=== PATIENT | female | born 1985 | race African-American/Black ===

== ENCOUNTER 2017-01-14 09:46 | Emergency (ER) | payer SELFPAY ==
[~2017-01-14] VITALS: Ht 149.9 cm; Wt 95.3 kg
[~2017-01-14 09:46] MED LIST: ALBU2.5V14 NEB; CEFD300C PO; CETI10TA22 PO; FLUT1DIS IH; MONT10TA9 PO; TRAM-48 PO; VENTOLIN HFA18 GM INH
--- NOTE | 2017-01-14 10:10 | PHYS DOC ---
Past Medical History Past Medical History: Asthma, Other Additional Past Medical Histor: seasonal allergies, neuropathy, morbid obesity Past Surgical History: , Tonsillectomy, Tubal ligation Additional Past Surgical Histo: Umbilical HERNIA REPAIR, c sec x5 Alcohol Use: Occasionally Drug Use: None Adult General Chief Complaint Chief Complaint: KNEE INJURY [facility] HPI Patient is a 31 year old female presents to the ED complaining of left knee injury 3 days. Patient states she hit her knee on a table and has had pain with walking since. She rates pain as 7 out of 10 and describes it as sharp. Denies fever, swelling, skin changes or inability to walk. Review of Systems Review of Systems Constitutional: Denies fever or chills [] Eyes: Denies change in visual acuity, redness, or eye pain [] HENT: Denies nasal congestion or sore throat [] Respiratory: Denies cough or shortness of breath [] Cardiovascular: No additional information not addressed in HPI [] GI: Denies abdominal pain, nausea, vomiting, bloody stools or diarrhea [] : Denies dysuria or hematuria [] Musculoskeletal: Denies back pain. Complains of left knee pain.] Integument: Denies rash or skin lesions [] Neurologic: Denies headache, focal weakness or sensory changes [] Endocrine: Denies polyuria or polydipsia [] Allergies Allergies Allergies Coded Allergies Type Severity Reaction Last Updated Verified amoxicillin Allergy Intermediate Rash 08/02/14 No cephalexin Allergy Intermediate Rash 08/02/14 No doxycycline Allergy Intermediate Rash 08/02/14 No Physical Exam Physical Exam Constitutional: Well developed, well nourished, no acute distress, non-toxic appearance. [] HENT: Normocephalic, atraumatic, bilateral external ears normal, oropharynx moist, no oral exudates, nose normal. [] Eyes: PERRLA, EOMI, conjunctiva normal, no discharge. [] Neck: Normal range of motion, no tenderness, supple, no stridor. [] Cardiovascular:Heart rate regular rhythm, no murmur [] Lungs & Thorax: Bilateral breath sounds clear to auscultation [] Abdomen: Bowel sounds normal, soft, no tenderness, no masses, no pulsatile masses. [] Skin: Warm, dry, no erythema, no rash. [] Back: No tenderness, no CVA tenderness. [] Extremities: Mild left anterior knee tenderness. no cyanosis, no clubbing, ROM intact, no edema. [] Neurologic: Alert and oriented X 3, normal motor function, normal sensory function, no focal deficits noted. [] Psychologic: Affect normal, judgement normal, mood normal. [] Current Patient Data Vital Signs Vital Signs Date Time Temp Pulse Resp B/P (MAP) Pulse Ox O2 Delivery O2 Flow Rate FiO2 01/14/17 10:18 98.4 82 16 97 Room Air 98.4 EKG EKG [] Radiology/Procedures Radiology/Procedures PROCEDURE: KNEE LEFT 3V Indication injury 2 days previously. Persistent pain. AP oblique and lateral views of the left knee were obtained. No bony abnormality is seen[] Course & Med Decision Making Course & Med Decision Making Pertinent Labs and Imaging studies reviewed. (See chart for details) . Discussed labs and imaging with patient. Patient's pain improved. Vital stable , no acute distress. She able to ambulate without pain. Discussed follow-up with orthopedics in 1-2 days. Discussed reasons to return to the ED. Patient understands and agrees with plan. Dragon Disclaimer Dragon Disclaimer This electronic medical record was generated, in whole or in part, using a voice recognition dictation system. Departure Departure Impression: Primary Impression: Knee pain, acute Disposition: HOME, SELF-CARE Condition: IMPROVED Referrals: KENNETH YANCEY MD (PCP) Patient Instructions: Knee - Meniscus Injury, Arthroscopy, Care After Scripts Tramadol Hcl (TRAMADOL HCL) 50 Mg Tablet 1 TAB PO PRN Q6HRS Y for PAIN for 3 Days, #10 TAB Prov: ADRIENNE VANG 01/14/17 ADRIENNE VANG Jan 14, 2017 10:10
[2017-01-14 10:18] VITALS: BP 133/81
--- NOTE | 2017-01-14 11:16 | RAD ---
Indication injury 2 days previously. Persistent pain. AP oblique and lateral views of the left knee were obtained. No bony abnormality is seen
[2017-01-14] MEDS ORDERED: TRAM50TA PO (11:41)
== END 2017-01-14 12:04 | disposition home or self-care (01) ==
LOC: ER 09:46
DX: M25.562 Pain in left knee (principal); J45.909 Unspecified asthma, uncomplicated; E66.01 Morbid (severe) obesity due to excess calories; G62.9 Polyneuropathy, unspecified; Z68.41 Body mass index [BMI] 40.0-44.9, adult; Z88.1 Allergy status to other antibiotic agents; W22.8XXA Striking against or struck by other objects, initial encounter; Y93.89 Activity, other specified; Y92.89 Other specified places as the place of occurrence of the external cause; Y99.8 Other external cause status
CPT/HCPCS: 73562; 99284